=== PATIENT | female | born 1935 | race Caucasian/White ===

== ENCOUNTER 2023-05-24 23:00 | Emergency (ER) | payer OTHER, SELFPAY ==
[2023-05-24 23:02] VITALS: BP 180/96; PULSE 85; RESP 17; TEMP 37; O2SAT 97
[2023-05-24 23:04] VITALS: PULSE 84
--- NOTE | 2023-05-24 23:34 | ED.CHESTPAI1 ---
HPI - Chest Pain General Chief Complaint: Chest Pain Stated Complaint: CHEST PAIN Time Seen by Provider: 05/24/23 23:29 Source: patient Mode of arrival: ambulance Limitations: no limitations History of Present Illness HPI narrative: past history of CAD. Recent treatment for C. diff. Still on antibiotics but diarrhea has stop. Bc experienced left shoulder/chest pain. this pain resolved and now she is complaining of RUQ abdominal pain. No nausea or dyspnea MD complaint: Reports chest pain Pertinent past history: Reports coronary artery disease Related Data Allergies Allergy/AdvReac Type Severity Reaction Status Date / Time No Known Drug Allergies Allergy Verified 05/24/23 23:02 Review of Systems ROS Status of ROS 10 or more systems reviewed and unremarkable except as noted in history and below Exam Constitutional Vital Signs, click to edit/add: Last Vital Signs Temp 98.6 F 05/24/23 23:02 Pulse 90 05/25/23 04:30 Resp 20 05/25/23 04:30 BP 178/86 H 05/25/23 04:30 Pulse Ox 98 05/25/23 04:30 O2 Del Method Room Air 05/25/23 04:30 O2 Flow Rate 2 05/25/23 01:50 Common normals: no apparent distress, oriented x3, no limitations, healthy appearing and alert Eye Common normals: EOMs intact bilaterally and conjunctivae normal Respiratory Common normals: normal respiratory effort, no retractions, no use of accessory muscles and clear to auscultation bilaterally Cardio Common normals: no JVD, regular rate, regular rhythm, S1 normal heart sound and S2 normal heart sound GI Common normals: Normal to inspection, nondistended, normoactive bowel sounds present, soft to palpation and non-tender Extremity Other: chronic edema bilat lower ext Neuro Common normals: CN's II-XII intact bilaterally and moves all extremities Psych Appearance: grossly normal Course Vital Signs Vital signs: Vital Signs Temperature 98.6 F 05/24/23 23:02 Pulse Rate 85 05/24/23 23:02 Respiratory Rate 17 05/24/23 23:02 Blood Pressure 180/96 H 05/24/23 23:02 Pulse Oximetry 97 05/24/23 23:02 Oxygen Delivery Method Nasal Cannula 05/24/23 23:02 Oxygen Delivery Flow Rate 2 05/24/23 23:02 Temperature 98.6 F 05/24/23 23:02 Pulse Rate 90 05/25/23 04:30 Respiratory Rate 20 05/25/23 04:30 Blood Pressure 178/86 H 05/25/23 04:30 Pulse Oximetry 98 05/25/23 04:30 Oxygen Delivery Method Room Air 05/25/23 04:30 Oxygen Delivery Flow Rate 2 05/25/23 01:50 MDM - Chest Pain MDM Narrative Medical decision making narrative: presents from long term with complaint of chest pain. Chest pain resolved at the long term . She presented here without chest pain but complained of abdominal pain. She has history of C. diff. and has been on antibiotics. Has past history of colitis also. Has swelling of her legs and stasis dermatitis changes. workup in the ER included neg serial troponins. CT abdomen with findings of colitis. Also found to have known pleural effusions which is not new and she has no respiratory symptoms.Family informed of the findings. Patient discharged back to the long term and to continue her current treatment Lab Data Labs: Lab Results 05/24/23 05/25/23 Range/Units 23:47 02:10 WBC 8.0 (4.0-11.0) 10^3/uL RBC 3.21 L (4.20-5.40) 10^6/uL Hgb 9.3 L (12.0-16.0) g/dL Hct 29.4 L (36.0-48.0) % MCV 91.6 (81.0-99.0) fL MCH 29.0 (26.7-34.0) pg MCHC 31.6 (29.9-35.2) g/dL RDW 16.5 H (11.0-15.0) % Plt Count 292 (150-450) 10^3/uL MPV 7.5 L (9.5-13.5) fL Neut % (Auto) 52.9 (43.0-75.0) % Lymph % (Auto) 32.0 (20.5-60.0) % [place] % (Auto) 8.8 (1.7-12.0) % Eos % (Auto) 4.0 (0.9-7.0) % Baso % (Auto) 1.5 (0.2-2.0) % Neut # (Auto) 4.2 (1.4-6.5) 10^3/uL Lymph # (Auto) 2.6 (1.2-3.8) 10^3/uL [place] # (Auto) 0.7 (0.3-0.8) 10^3/uL Eos # (Auto) 0.3 (0.0-0.7) 10^3/uL Baso # (Auto) 0.1 (0.0-0.1) 10^3/uL Abs Immat Gran (auto) 0.06 H (0.00-0.03) 10^3/uL Imm/Tot Granulo (auto) 0.8 H (0.0-0.5) % Sodium 139 (136-145) mmol/L Potassium 3.0 L (3.5-5.1) mmol/L Chloride 105 (98-107) mmol/L Carbon Dioxide 28.9 (21.0-32.0) mmol/L Anion Gap 8.1 BUN 10.0 (7.0-18.0) mg/dL Creatinine 0.49 L (0.55-1.02) mg/dL Est GFR ( Amer) >60 (>=60) Est GFR (Non-Af Amer) >60 (>=60) BUN/Creatinine Ratio 20.4 Glucose 96 (74-106) mg/dL Calcium 7.3 L (8.5-10.1) mg/dL Total Bilirubin 0.3 (0.2-1.0) mg/dL AST 24 (15-37) U/L ALT 18 (14-59) U/L Alkaline Phosphatase 63 (46-116) U/L Troponin I High Sens 11.5 12.6 (4.0-51.3) pg/mL Total Protein 5.4 L (6.4-8.2) g/dL Albumin 2.1 L (3.4-5.0) g/dL Globulin 3.3 g/dL Albumin/Globulin Ratio 0.6 Lipase 308.0 (73.0-393.0) U/L Discharge Plan Discharge Chief Complaint: Chest Pain Clinical Impression: Colitis, Stasis dermatitis of both legs, Atypical chest pain Patient Disposition: Home, Self-Care Time of Disposition Decision: 04:00 Condition: Good Mode of Transportation: Private Vehicle Instructions: Chest Pain (ED), Colitis (ED) Stand Alone Forms: Portal Instructions Referrals: STEFANY BUITRAGO DO [Primary Care Provider] - 1 week Discharge Date/Time: 05/25/23 04:33
--- NOTE | 2023-05-24 23:37 | ECG_ITS ---
[facility] Test Date: 2023-05-24 Pat Name: Kimber Jaquez Department: Room: - Gender: Female Lead Data Entry Operator: : 1935 Requested By: [id number] Order Number: [id number] Reading MD: JAJA BEJARANO Measurements Intervals [place] Rate: 84 P: 20 TN: 158 QRS: -9 QRSD: 132 T: 20 QT: 386 QTc: 427 Interpretive Statements 1100 Sinus rhythm 2450 Right bundle branch block 5211 Minimal voltage criteria for LVH, may be normal variant 9150 abnormal ECG No previous ECG available for comparison Electronically Signed On 05-25-2023 12:37:34 EDT by JAJA BEJARANO
[2023-05-24 23:54] LABS: Basophils Absolute Auto 0.1 10^3/uL (0.0-0.1); Basophils Percent Auto 1.5 % (0.2-2.0); Eosinophils Absolute Auto 0.3 10^3/uL (0.0-0.7); Hematocrit 29.4 % (36.0-48.0); Hemoglobin 9.3 g/dL (12.0-16.0); Immature Granulocytes Abs Auto 0.06 10^3/uL (0.00-0.03); Immature Granulocytes Pct Auto 0.8 % (0.0-0.5); Lymphocytes Absolute Auto 2.6 10^3/uL (1.2-3.8); Mean Corpuscular HGB Conc 31.6 g/dL (29.9-35.2); Mean Corpuscular Volume 91.6 fL (81.0-99.0); Mean Platelet Volume 7.5 fL (9.5-13.5); Monocytes Absolute Auto 0.7 10^3/uL (0.3-0.8); Monocytes Percent Auto 8.8 % (1.7-12.0); Neutrophils Absolute Auto 4.2 10^3/uL (1.4-6.5); Neutrophils Percent Auto 52.9 % (43.0-75.0); Platelet Count 292 10^3/uL (150-450); Red Blood Count 3.21 10^6/uL (4.20-5.40); Red Cell Distribution Width 16.5 % (11.0-15.0)
--- NOTE | 2023-05-25 | XR_ITS ---
The [address] [address] Patient Name: NATHALIE BRIONES MRN: [id number] date: 1935 Sex: F Assigned Patient Location: ER Current Patient Location: ER Accession/Order Number: [id number] Exam Date: 05/25/2023 00:38 Report Date: 05/25/2023 02:48 At the request of: LILLIAM FONTANEZ Procedure: XR chest 1V EXAM: XR chest 1V HISTORY: chest pain COMPARISON: None. TECHNIQUE: AP FINDINGS: Left anterior chest wall pacemaker with the distal leads noted along the region of the right atrium and right ventricle. Patient is rotated slightly limiting evaluation. Heart size is mildly enlarged. Mild to moderate bilateral pleural effusions with bibasilar dependent atelectasis. Mild interstitial edema suspected. No evidence for pneumothorax. No evidence for focal consolidation or infiltrate. XR/XR chest 1V IMPRESSION: Mild cardiomegaly with mild to moderate bilateral pleural effusions and bibasilar dependent atelectasis. Mild interstitial edema suspected. Electronically authenticated by: SAVANNAH GARCIA Date: 05/25/2023 02:48
--- NOTE | 2023-05-25 | CT_ITS ---
The [address] [address] Patient Name: NATHALIE BRIONES MRN: [id number] date: 1935 Sex: F Assigned Patient Location: ER Current Patient Location: ER Accession/Order Number: [id number] Exam Date: 05/25/2023 00:38 Report Date: 05/25/2023 03:22 At the request of: LILLIAM FONTANEZ Procedure: CT abdomen pelvis w con EXAM: CT abdomen pelvis w con HISTORY: Chest pain and right-sided abdominal pain. History of uterine cancer. COMPARISON: None. TECHNIQUE: IV contrast enhanced CT imaging the abdomen and pelvis was performed using 100 mL of Omnipaque 300 intravenous contrast. Sagittal and coronal reconstructions are provided. FINDINGS: CT ABDOMEN: Moderate size layering pleural effusions are noted with adjacent posterior lower lobe atelectasis and mild bibasilar fibrotic scarring. Cardiac size is normal. Cardiac pacing leads are seen in the right heart. There is no pericardial effusion. The liver, gallbladder, pancreas, adrenal glands and right kidney are unremarkable. There is a small medial left renal cortical cyst on image 47. The left kidney is otherwise unremarkable. There is calcified granulomatous disease in the otherwise unremarkable spleen. The nonenhanced stomach and small bowel show no acute abnormality. There are fairly mild aortic calcifications without aneurysm or dissection. There is a circumaortic left renal vein, normal variant. CT PELVIS: Diffuse colonic wall thickening extends from the cecum to the anus consistent with infectious/inflammatory colitis. Mild sigmoid diverticulosis is noted. There is a long segment of distal ileal wall thickening extending to the ileocecal junction consistent with severe ileitis. Prior hysterectomy is noted. The urinary bladder appears normal. Diffuse abdominal and pelvic fluid and fat stranding are present. No loculated fluid or free air is seen. There is diffuse body wall edema. Severe degenerative disc disease is seen at L5-S1. No acute osseous abnormality or suspicious bony lesion is seen. CT/CT abdomen pelvis w con IMPRESSION: 1. Long segment prominent wall thickening in the distal ileum extending to the ileocecal junction, with prominent pancolonic wall thickening extending from the cecum to the anus consistent with infectious or inflammatory ileocolitis. No skip lesions are identified. 2. Fluid and fat stranding throughout the abdomen and pelvis, presumably reactive. No loculated fluid or free air is seen. 3. Diffuse body wall edema with abdominal ascites and layering bilateral pleural effusions consistent with anasarca. Adjacent posterior lower lobe consolidation favors atelectasis. Electronically authenticated by: PITO POOLE Date: 05/25/2023 03:22
[2023-05-25 00:54] LABS: Anion Gap 8.1
[2023-05-25 00:56] LABS: Alanine Aminotransferase 18 U/L (14-59); Albumin Globulin Ratio 0.6; Albumin Level 2.1 g/dL (3.4-5.0); Alkaline Phosphatase 63 U/L (46-116); Aspartate Amino Transferase 24 U/L (15-37); BUN Creatinine Ratio 20.4; Bilirubin Total 0.3 mg/dL (0.2-1.0); Calcium 7.3 mg/dL (8.5-10.1); Carbon Dioxide 28.9 mmol/L (21.0-32.0); Chloride 105 mmol/L (98-107); Estimated GFR (African America >60 (>=60); Estimated GFR (Non-African Ame >60 (>=60); Globulin 3.3 g/dL; Glucose 96 mg/dL (74-106); Sodium 139 mmol/L (136-145); Total Protein 5.4 g/dL (6.4-8.2); Troponin I High Sensitivity 11.5 pg/mL (4.0-51.3)
[2023-05-25 01:50] VITALS: BP 169/90; PULSE 85; RESP 20; O2SAT 100
[2023-05-25 03:18] LABS: Troponin I High Sensitivity 12.6 pg/mL (4.0-51.3)
[2023-05-25 04:30] VITALS: BP 178/86; PULSE 90; RESP 20; O2SAT 98
== END 2023-05-25 04:33 | disposition home or self-care (01) ==
PROVIDERS: Emergency Provider Internal Medicine; PCP Family Medicine
DX: R07.89 Other chest pain (principal); K52.9 Noninfective gastroenteritis and colitis, unspecified; I87.2 Venous insufficiency (chronic) (peripheral); J90 Pleural effusion, not elsewhere classified; I25.10 Atherosclerotic heart disease of native coronary artery without angina pectoris
CPT/HCPCS: 36415; 71045; 74177; 80053; 83690; 84484; 85025; 93005; 99285; Q9967